=== PATIENT | male | born 1945 | race Caucasian/White ===

== ENCOUNTER 2016-12-24 08:17 | Day surgery (SDC) | payer MEDICARE, BC ==
[2016-12-24 10:39] VITALS: BP 143/80; PULSE 72; RESP 20; TEMP 97.6; O2SAT 94
== END 2016-12-24 10:55 | disposition home or self-care (01) | DRG 951 ==
LOC: SURG 08:17
PROVIDERS: ATTEND Surgery
DX: Z12.11 Encounter for screening for malignant neoplasm of colon (principal); D12.2 Benign neoplasm of ascending colon; K57.30 Diverticulosis of large intestine without perforation or abscess without bleeding; D12.8 Benign neoplasm of rectum; R73.03 Prediabetes
CPT/HCPCS: 82962; J2001; J2704